=== PATIENT | male | born 1950 | race Caucasian/White ===

== ENCOUNTER 2018-11-21 09:10 | Outpatient (CLI) | payer MEDICARE ==
--- NOTE | 2018-11-21 09:55 | RAD ---
LEFT HIP RADIOGRAPHS TWO VIEWS: Date: 11-21-18 Provided Clinical History: Chronic pain. FINDINGS: There is no evidence for fracture. There is prominent acetabular over coverage producing the potentia l for femoral-acetabular impingement. Alignment appears anatomic. Left hip joint space appears preser johnathon. IMPRESSION: Prominent acetabular over coverage predisposing to femoral/acetabular impingement. POS: [facility]
--- NOTE | 2018-11-21 09:57 | RAD ---
LUMBAR SPINE RADIOGRAPHS FOUR VIEWS: Date: 11-21-18 History: Lumbago with sciatica. FINDINGS: Five non-rib bearing lumbar type vertebral bodies are present. There is slight retrolisthesis of L3 o n L4. Lumbar alignment appears otherwise normal. There is no evidence for abnormal translation motion with flexion or extension. Vertebral body heights appear preserved. Mild disc space narrowing at L4- 5. Lower lumbar spine facet arthritis. Multilevel annular degenerative changes. IMPRESSION: Multilevel lumbar degenerative change. POS: [facility]
--- NOTE | 2018-11-21 11:09 | MRI ---
MRI LUMBAR SPINE WITHOUT CONTRAST: INDICATIONS: Sciatica. Lumbago. Low back pain. TECHNIQUE: Multiplanar, multisequential imaging of the lumbar spine obtained. FINDINGS: The lumbar vertebrae maintain height and alignment. Vertebral body signal is normal with no evidence of edema. Moderate anterior and lateral osteophytes are present throughout. These osteophytes are most prominent at the L1-L2 and L2-L3 levels. Degenerative disk changes seen at all levels with mild loss of disk space throughout, most prominent at L4-L5 and L5-S1. At L1-L2, there is an annular fissure with disk protrusion, paracentrally, to the left, indenting the anterior thecal sac on the left. Mild left foraminal encroachment. Facet and ligamentous hypertrop hy. Mild central canal stenosis. At L2-L3, mild disk bulge. Moderate facet hypertrophy. No significant central canal stenosis. A di sk osteophyte complex projects to the right and encroaches into the right foramina, contacting the ex iting right L2 nerve root. At L3-L4, mild diffuse disk bulge. Facet and ligamentous hypertrophy. Minimal central canal stenosi s. Bilateral foraminal stenosis secondary to disk bulge and facet hypertrophy. At L4-L5, broad-based disk bulge flattens the thecal sac. Facet hypertrophy. Mild central canal sarah nosis. Bilateral foraminal stenosis secondary to broad-based disk bulge extending into the foramina. Disk osteophyte complex bilaterally producing foraminal encroachment, more prominent on the right. At L5-S1, annular fissure. There is diffuse disk bulge with asymmetric protrusion to the left, exten ding into the left foramina and contacting the exiting left L5 nerve root. This mildly displaces the traversing left S1 nerve root. Facet hypertrophy. Mild central canal stenosis. There is also righ t foraminal stenosis secondary to broad-based disk osteophyte complex and facet hypertrophy encroachi ng into the foramina. IMPRESSION: Disk protrusion at L1-L2. Disk bulge and hypertrophic change at multiple levels. Annular fissure an d disk protrusion to the left, at L5-S1. See description of each level above. POS: [facility]
== END 2018-11-21 09:11 | disposition home or self-care (01) ==
LOC: BICMRI 09:10
PROVIDERS: ATTEND Family Medicine
DX: M54.42 Lumbago with sciatica, left side (principal); R10.32 Left lower quadrant pain; G89.29 Other chronic pain; M47.816 Spondylosis without myelopathy or radiculopathy, lumbar region; M25.852 Other specified joint disorders, left hip; M51.26 Other intervertebral disc displacement, lumbar region; M51.27 Other intervertebral disc displacement, lumbosacral region
CPT/HCPCS: 72110; 72148

== ENCOUNTER 2021-06-15 09:53 | Outpatient (CLI) | payer MEDICARE ==
[2021-06-15] MEDS ORDERED: Iopamidol-370 76% 500 ML 1 ML ONE (10:54)
== END 2021-06-15 09:54 | disposition home or self-care (01) ==
LOC: BICCT 09:53
PROVIDERS: ATTEND Urology
DX: R31.0 Gross hematuria (principal); K57.30 Diverticulosis of large intestine without perforation or abscess without bleeding; N28.1 Cyst of kidney, acquired; N32.89 Other specified disorders of bladder
CPT/HCPCS: 74178; 82565; Q9967

== ENCOUNTER 2021-07-18 12:38 | Outpatient (CLI) | payer MEDICARE ==
[2021-07-18 13:49] LABS: PTT 24.6 sec (22.0-33.0); Prothrombin Time 10.9 sec (9.5-12.1)
[2021-07-18 13:57] LABS: Anion Gap 15 mmol/L (10-20); BUN (Urea Nitrogen) 26 mg/dL (8.4-25.7); Calc. Creatinine Clearance 0 mL/min (70-130); Calcium 8.8 mg/dL (7.8-10.44); Carbon Dioxide 24 mmol/L (23-31); Chloride 107 mmol/L (98-107); Glucose 165 mg/dL (83-110); Potassium 4.3 mmol/L (3.5-5.1); Sodium 142 mmol/L (136-145)
[2021-07-18 14:29] LABS: Hemoglobin 9.1 g/dL (13.5-17.5); Mean Corpuscular HGB CONC 31.7 g/dL (32.0-36.0); Mean Corpuscular Volume 94.7 fl (81.2-95.1); Mean Platelet Volume 9.9 fl (7.4-10.4); Platelet Count 223 10x3/uL (150-450); Red Blood Cell (RBC) Count 3.03 10x6/uL (4.32-5.72); White Blood Cell (WBC) Count 5.3 10x3/uL (3.5-10.5)
[2021-07-18 16:00] LABS: Clarity Cloudy (Clear); Glucose, Urine (Dipstick) Unable to Interpret mg/dL (Negative); Ketone, Urine Unable to Interpret mg/dL (Negative); Leukocyte Unable to Interpret (Negative); Nitrite Unable to Interpret (Negative); Protein, Urine (Dipstick) Unable to Interpret mg/dl (Neg-Trace); Urobilinogen UNABLE TO INTERPRET mg/dL (Less than 2); pH, Urine 6.5 (5.0-9.0)
[2021-07-18 16:01] LABS: Bilirubin Unable to Interpret (Negative); Blood, Urine Unable to Interpret (Negative); RBC/HPF Greater than 50 HPF (0-3)
[2021-07-18 16:02] LABS: Bacteria/HPF 1+ HPF (None Seen); Squamous Epithelial 0-3 HPF (0-3); WBC/HPF 0-3 HPF (0-3)
[2021-07-19 00:58] LABS: SARS-CoV-2 PCR by NAA Not Detected (NotDetected)
== END 2021-07-18 12:39 | disposition home or self-care (01) ==
LOC: LABBT 12:38
PROVIDERS: ATTEND Urology
DX: Z01.818 Encounter for other preprocedural examination (principal); N40.0 Benign prostatic hyperplasia without lower urinary tract symptoms; R31.0 Gross hematuria; F17.200 Nicotine dependence, unspecified, uncomplicated; E11.29 Type 2 diabetes mellitus with other diabetic kidney complication; R80.9 Proteinuria, unspecified; I25.10 Atherosclerotic heart disease of native coronary artery without angina pectoris; E11.59 Type 2 diabetes mellitus with other circulatory complications; E11.22 Type 2 diabetes mellitus with diabetic chronic kidney disease; N18.31 Chronic kidney disease, stage 3a
CPT/HCPCS: 80048; 81001; 85027; 85610; 85730; 87086; U0003; U0005; 93005; 93010

== ENCOUNTER 2021-07-21 06:56 | Day surgery (SDC) | payer MEDICARE ==
[2021-07-20 11:49] VITALS: BMI 26.1
[2021-07-21] MEDS ORDERED: Levofloxacin 500 mg/D5W 100 ml Premix Bag ONE (07:03)
[2021-07-21] MEDS ORDERED: Phenylephrine 10 MG/ML VIAL ONE (09:09)
[2021-07-21] MEDS ORDERED: Fentanyl 100 MCG/2 ML VIAL ONE ×2 (09:09)
[2021-07-21] MEDS ORDERED: PROPOFOL 200 MG/20 ML VIAL ONE (09:34)
[2021-07-21] MEDS ORDERED: ePHEDrine 50 MG/ML VIAL ONE (09:34)
[2021-07-21] MEDS ORDERED: PHENYLEPHRINE-NS 100 MCG/ML 10 ML SYRINGE ONE (09:34)
[2021-07-21] MEDS ORDERED: Rocuronium Bromide 10 MG/ML (10ML VIAL) ONE (09:34)
[2021-07-21] MEDS ORDERED: Ondansetron PF 4 MG/2 ML Vial ONE (09:34)
[2021-07-21] MEDS ORDERED: Glycopyrrolate 0.2 MG/ML 5 ML SYRINGE ONE (09:34)
[2021-07-21] MEDS ORDERED: Lidocaine 1% PF 5 ML VIAL ONE (09:34)
[2021-07-21] MEDS ORDERED: Metoclopramide HCl 10 MG/2 ML VIAL ONE (09:34)
[2021-07-21] MEDS ORDERED: B & O 30 MG SUPP ONE ×2 (10:51→11:00)
[2021-07-21] MEDS ORDERED: Phenazopyridine HCl 100 MG TAB ONE (11:48)
[2021-07-21] MEDS ORDERED: Oxybutynin 5 MG TAB ONE (11:48)
[2021-07-21] MEDS ORDERED: mitoMYcin 40 MG in Water For Injection,Sterile 20 ML IVPB SCH (12:00)
== END 2021-07-21 14:41 | disposition home or self-care (01) ==
LOC: SDC 06:56
PROVIDERS: ATTEND Urology
PROC: 0T5B8ZZ Destruction of Bladder, Via Natural or Artificial Opening Endoscopic (ICD-10-PCS; principal; 2021-07-21)
PROC: 0VT08ZZ Resection of Prostate, Via Natural or Artificial Opening Endoscopic (ICD-10-PCS; 2021-07-21)
DX: N40.0 Benign prostatic hyperplasia without lower urinary tract symptoms (principal); C67.1 Malignant neoplasm of dome of bladder; E78.5 Hyperlipidemia, unspecified; F17.290 Nicotine dependence, other tobacco product, uncomplicated; I25.10 Atherosclerotic heart disease of native coronary artery without angina pectoris; I12.9 Hypertensive chronic kidney disease with stage 1 through stage 4 chronic kidney disease, or unspecified chronic kidney disease; E11.22 Type 2 diabetes mellitus with diabetic chronic kidney disease; N18.31 Chronic kidney disease, stage 3a; Z79.82 Long term (current) use of aspirin; Z79.84 Long term (current) use of oral hypoglycemic drugs; Z79.899 Other long term (current) drug therapy
CPT/HCPCS: 52235; 52601; J9280; 88305; 88307; A4216; J1956; J2370; J2405; J2704; J2765; J3010; J3490

== ENCOUNTER 2023-06-08 10:17 | Outpatient (CLI) | payer MEDICARE | END 2023-06-08 10:18 | disposition home or self-care (01) | LOC: ULT 10:17 | PROVIDERS: ATTEND Family Medicine | DX: I73.9 Peripheral vascular disease, unspecified (principal) | CPT/HCPCS: 93922 ==

== ENCOUNTER 2025-08-12 11:22 | Outpatient (CLI) | payer MEDICARE | END 2025-08-12 11:23 | disposition home or self-care (01) | LOC: RAD 11:22 | PROVIDERS: ATTEND Internal Medicine Critical Care Medicine | DX: R06.00 Dyspnea, unspecified (principal) | CPT/HCPCS: 71046 ==